=== PATIENT | male | born 1965 | race Caucasian/White ===

== ENCOUNTER 2023-08-07 08:43 | Emergency (ER) | payer BC ==
[2023-08-07] MEDS ORDERED: Ketorolac Tromethamine 30 MG (1 mL) VIAL ONE (10:48)
[2023-08-07 10:55] LABS: #Eosinphils 0.1 thou/uL (0.0-0.7); #Monocytes 0.5 thou/uL (0.11-0.59); #Neutrophils 3.9 thou/uL (1.40-6.50); %Basophils 0.7 % (0.0-1.0); %Eosinophils 2.4 % (0.0-10.0); %Lymphocytes 21.3 % (21.0-51.0); %Monocytes 8.9 % (0.0-10.0); %Neutrophils 66.4 % (42.0-75.0); Hematocrit 45.4 % (42.0-52.0); Hemoglobin 15.6 g/dL (14.0-18.0); Mean Corpuscular HGB CONC 34.4 g/dL (32.0-36.0); Mean Corpuscular Hemoglobin 32.7 pg (27.0-31.0); Mean Corpuscular Volume 95.2 fl (78.0-98.0); Mean Platelet Volume 9.7 fL (7.4-10.4); Platelet Count 184 10x3/uL (130-400); RBC Distribution Width 13.2 % (11.5-14.5); Red Blood Cell (RBC) Count 4.77 mill/uL (4.70-6.10); White Blood Cell (WBC) Count 5.9 10x3/uL (4.8-10.8)
[2023-08-07 11:16] LABS: ALT (SGPT) 28 U/L (8-55); AST (SGOT) 21 U/L (5-34); Albumin 3.9 g/dL (3.5-5.0); Alkaline Phosphatase 65 U/L (40-110); Anion Gap 15 mmol/L (10-20); BUN (Urea Nitrogen) 16 mg/dL (8.4-25.7); Bilirubin, Total 0.6 mg/dL (0.2-1.2); Calc. Creatinine Clearance 0 mL/min (70-130); Carbon Dioxide 22 mmol/L (22-29); Chloride 104 mmol/L (98-107); Estimated GFR 53; Globulin 3.3 g/dL (2.4-3.5); Glucose 74 mg/dL (70-105); Potassium 4.2 mmol/L (3.5-5.1); Protein, Total 7.2 g/dL (6.0-8.3); Sodium 137 mmol/L (136-145)
== END 2023-08-07 12:24 | disposition home or self-care (01) ==
LOC: ERS 08:43
DX: I10 Essential (primary) hypertension (principal); Z55.6 Problems related to health literacy
CPT/HCPCS: 36415; 72193; 80053; 85025; 96374; J1885

== ENCOUNTER 2024-03-15 05:38 | Observation (INO) | payer BC ==
[2024-03-15] MEDS ORDERED: Ondansetron PF 4 MG/2 ML Vial ONE ×2 (06:00→14:07)
[2024-03-15] MEDS ORDERED: Morphine 4 MG/ML VIAL ONE ×3 (06:00→14:07)
[2024-03-15 06:22] LABS: #Basophils 0.03 10x3/uL (0.0-0.2); #Eosinophils Less than 0.03 10x3/uL (0.0-0.7); %Basophils 0.4 % (0.0-1.0); %Eosinophils 0.1 % (0.0-10.0); %Lymphocytes 6.5 % (21.0-51.0); %Monocytes 5.1 % (0.0-10.0); %Neutrophils 87.6 % (42.0-75.0); Mean Corpuscular HGB CONC 33.3 g/dL (32.0-36.0); Mean Corpuscular Hemoglobin 31.9 pg (27.0-31.0); Mean Corpuscular Volume 95.7 fL (78.0-98.0); Mean Platelet Volume 9.7 fL (7.4-10.4); Platelet Count 185 10x3/uL (130-400); RBC Distribution Width 13.5 % (11.5-14.5)
[2024-03-15 06:24] LABS: Bacteria/HPF None Seen HPF (None Seen); Bilirubin Negative (Negative); Blood, Urine Trace (Negative); CAUTI Indications for Culture Pelvic or flank pain; Clarity Clear (Clear); Glucose, Urine (Dipstick) Normal (Negative); Ketone, Urine 20 mg/dL (Negative); Leukocyte Negative Leu/uL (Negative); Nitrite Negative (Negative); Protein, Urine (Dipstick) Negative (Neg-Trace); RBC/HPF 0-3 HPF (0-3); Specific Gravity, Urine 1.016 (1.002-1.036); Squamous Epithelial None Seen HPF (0-3); WBC/HPF 0-3 HPF (0-3)
[2024-03-15 06:28] LABS: Urine Culture Reflex No No
[2024-03-15 06:37] LABS: ALT (SGPT) 150 U/L (8-55); AST (SGOT) 210 U/L (5-34); Albumin 3.8 g/dL (3.5-5.0); Alkaline Phosphatase 130 U/L (40-110); Anion Gap 16 mmol/L (10-20); BUN (Urea Nitrogen) 17 mg/dL (8.4-25.7); Bilirubin, Total 2.3 mg/dL (0.2-1.2); Calc. Creatinine Clearance 0 mL/min (70-130); Calcium 9.3 mg/dL (7.8-10.44); Carbon Dioxide 20 mmol/L (22-29); Chloride 105 mmol/L (98-107); Estimated GFR 73; Globulin 3.4 g/dL (2.4-3.5); Glucose 113 mg/dL (70-105); Lipase 24 U/L (8-78); Protein, Total 7.2 g/dL (6.0-8.3); Sodium 137 mmol/L (136-145)
[2024-03-15 06:42] LABS: Troponin I Less than 0.010 ng/mL (< 0.028)
[2024-03-15] MEDS ORDERED: Iopamidol-370 76% 500 ML MDV (1 ML CHARGE) ONE (08:53)
[2024-03-15] MEDS ORDERED: Piperacillin/Tazobactam 4.5 GM VIAL ONE (10:17)
[2024-03-15] MEDS ORDERED: Sodium Chloride 0.9% 100 ML ONE ×2 (10:17→15:27)
[2024-03-15] MEDS ORDERED: TETANUS, DIPHTHERIA TOX,ADULT (TDVAX) 0.5 ML VIAL IM ONE (11:00)
[2024-03-15] MEDS ORDERED: Dextrose 5% in Water 1,000 ML IV PRN (11:00)
[2024-03-15] MEDS ORDERED: Glucagon 1 MG/ML KIT IM PRN (11:00)
[2024-03-15] MEDS ORDERED: Acetaminophen 325 MG TAB PO PRN (11:00)
[2024-03-15] MEDS ORDERED: Dextrose 50% Abboject 50 ML SYRINGE SLOW IVP PRN (11:00)
[2024-03-15 11:38] VITALS: BMI 37.0
[2024-03-15] MEDS: Sodium Chloride 0.9% 1,000 ML IV SCH (13:16)
[2024-03-15] MEDS: Morphine 4 MG/ML VIAL SLOW IVP PRN (14:31)
[2024-03-15] MEDS: Ondansetron PF 4 MG/2 ML Vial IVP PRN (14:31)
[2024-03-15] MEDS ORDERED: Piperacillin/Tazobactam 3.375 GM VIAL ONE (15:28)
[2024-03-15] MEDS: Piperacillin/Tazobactam 3.375 GM in Sodium Chloride 0.9% 100 ML IVPB SCH (15:46)
[2024-03-15] MEDS ORDERED: hydrALAZINE 20 MG/ML VIAL ONE (16:34)
[2024-03-15] MEDS: hydrALAZINE 20 MG/ML VIAL SLOW IVP PRN (16:41)
[2024-03-15] MEDS: FLU (Fluarix Triv) TS24-25(6MOS UP)/PF 45 MCG/0.5 ML Syringe IM ONE (21:06)
[2024-03-15] MEDS: traMADol HCl 50 MG TAB PO PRN (21:08)
[2024-03-15] MEDS: Famotidine/PF 20 mg/2ml Vial SLOW IVP SCH (21:08)
[2024-03-16] MEDS: Sodium Chloride 0.9% 100 ML ONE (04:16)
[2024-03-16 05:55] LABS: #Basophils 0.06 10x3/uL (0.0-0.2); %Basophils 1.3 % (0.0-1.0); %Eosinophils 2.3 % (0.0-10.0); %Monocytes 9.1 % (0.0-10.0); %Neutrophils 63.1 % (42.0-75.0); Hematocrit 38.9 % (42.0-52.0); Hemoglobin 12.7 g/dL (14.0-18.0); Mean Corpuscular HGB CONC 32.6 g/dL (32.0-36.0); Mean Corpuscular Hemoglobin 31.8 pg (27.0-31.0); Mean Corpuscular Volume 97.3 fL (78.0-98.0); Mean Platelet Volume 9.7 fL (7.4-10.4); Platelet Count 164 10x3/uL (130-400); RBC Distribution Width 13.9 % (11.5-14.5)
[2024-03-16 06:13] LABS: ALT (SGPT) 176 U/L (8-55); AST (SGOT) 124 U/L (5-34); Albumin 3.2 g/dL (3.5-5.0); Alkaline Phosphatase 118 U/L (40-110); Anion Gap 10 mmol/L (10-20); BUN (Urea Nitrogen) 13 mg/dL (8.4-25.7); Bilirubin, Total 1.3 mg/dL (0.2-1.2); Calc. Creatinine Clearance 95 mL/min (70-130); Calcium 8.5 mg/dL (7.8-10.44); Carbon Dioxide 26 mmol/L (22-29); Chloride 106 mmol/L (98-107); Estimated GFR 61; Globulin 2.6 g/dL (2.4-3.5); Glucose 90 mg/dL (70-105); Potassium 4.3 mmol/L (3.5-5.1); Protein, Total 5.8 g/dL (6.0-8.3); Sodium 138 mmol/L (136-145)
[2024-03-16] MEDS ORDERED: Bupivacaine PF 0.5% 30 ML VIAL ONE (06:49)
[2024-03-16] MEDS ORDERED: EPINEPHrine 1 MG/ML VIAL ONE (06:49)
[2024-03-16] MEDS ORDERED: Ondansetron PF 4 MG/2 ML Vial ONE (06:56)
[2024-03-16] MEDS ORDERED: SUGAMMADEX SODIUM 200 MG/2 ML VIAL ONE (06:56)
[2024-03-16] MEDS ORDERED: fentaNYL PF 100 MCG/2 ML SYRINGE ONE (06:56)
[2024-03-16] MEDS ORDERED: Dexamethasone 4 mg/ml Vial ONE (06:56)
[2024-03-16] MEDS ORDERED: Lidocaine 1% PF 5 ML VIAL ONE (06:56)
[2024-03-16] MEDS ORDERED: PROPOFOL 40 ML ONE (06:56)
[2024-03-16] MEDS ORDERED: Rocuronium Bromide 10 MG/ML (10ML VIAL) ONE ×2 (06:56→06:58)
[2024-03-16] MEDS ORDERED: Ketorolac Tromethamine 30 MG (1 mL) VIAL ONE ×2 (07:17→08:27)
[2024-03-16] MEDS ORDERED: Midazolam HCl 2 mg/2 ml Vial ONE (07:36)
[2024-03-16] MEDS ORDERED: Iopamidol 15 ML ONE (07:48)
[2024-03-16] MEDS ORDERED: ePHEDrine Sulfate 50 MG/10 ML VIAL ONE (08:07)
[2024-03-16] MEDS ORDERED: Glucagon 1 MG/ML KIT ONE (08:23)
[2024-03-16] MEDS ORDERED: fentaNYL 50 mcg/mL 1 mL Vial ONE ×2 (08:57→09:33)
[2024-03-16] MEDS ORDERED: traMADol HCl 50 MG TAB PO PRN (09:38)
[2024-03-16] MEDS: Acetaminophen 500 MG TAB PO SCH (10:50)
[2024-03-16] MEDS ORDERED: Acetaminophen 500 MG TAB PO SCH (13:00)
[2024-03-16 13:09] VITALS: BP 130/81; TEMP 97.8
[2024-03-16] MEDS ORDERED: Atorvastatin Calcium 10 MG TAB PO SCH (21:00)
[2024-03-17] MEDS ORDERED: [UNRECOGNIZED DRUG - OTHER] PO SCH (09:00)
[2024-03-17] MEDS ORDERED: BENAZEPRIL PO SCH ×2 (09:00)
[2024-03-17] MEDS ORDERED: AMLODIPINE BESYLATE PO SCH ×2 (09:00)
== END 2024-03-16 13:17 | disposition home or self-care (01) ==
LOC: ERS 05:38 → INTOOBSV 11:02 → ERHOLD 11:02 → SURG A 17:27
PROVIDERS: ADMIT Surgery; ATTEND Surgery
PROC: 0FT44ZZ Resection of Gallbladder, Percutaneous Endoscopic Approach (ICD-10-PCS; principal; 2024-03-16)
DX: K80.12 Calculus of gallbladder with acute and chronic cholecystitis without obstruction (principal); E80.7 Disorder of bilirubin metabolism, unspecified; I10 Essential (primary) hypertension; E66.9 Obesity, unspecified; I71.40 Abdominal aortic aneurysm, without rupture, unspecified; R74.01 Elevation of levels of liver transaminase levels; I38 Endocarditis, valve unspecified; Z98.890 Other specified postprocedural states; Z98.84 Bariatric surgery status; Z96.653 Presence of artificial knee joint, bilateral; Z68.37 Body mass index [BMI] 37.0-37.9, adult
CPT/HCPCS: 36415; 71045; 74177; 76705; 80053; 81001; 83605; 83690; 84484; 85025; 88304; 93005; 96365; 96375; 96376; C1889; J0171; J0360; J0665; J1100; J1611; J1885; J2250; J2272; J2405; J2543; J2704; J3010; J3490; J7030; Q9967

== ENCOUNTER 2024-12-03 22:13 | Emergency (ER) | payer BC ==
[2024-12-03 22:44] LABS: #Basophils 0.04 10x3/uL (0.0-0.2); #Eosinophils 0.07 10x3/uL (0.0-0.7); #Monocytes 0.45 10x3/uL (0.11-0.59); #Neutrophils 3.39 10x3/uL (1.40-6.50); %Basophils 0.7 % (0.0-1.0); %Eosinophils 1.2 % (0.0-10.0); %Lymphocytes 34.4 % (21.0-51.0); %Monocytes 7.4 % (0.0-10.0); %Neutrophils 56.0 % (42.0-75.0); Hematocrit 42.2 % (42.0-52.0); Hemoglobin 14.3 g/dL (14.0-18.0); Mean Corpuscular Hemoglobin 32.4 pg (27.0-31.0); Mean Corpuscular Volume 95.7 fL (78.0-98.0); Platelet Count 158 10x3/uL (130-400); Red Blood Cell (RBC) Count 4.41 mill/uL (4.70-6.10); White Blood Cell (WBC) Count 6.05 10x3/uL (4.8-10.8)
[2024-12-03 23:09] LABS: ALT (SGPT) 22 U/L (Less than 45); AST (SGOT) 19 U/L (11-34); Albumin 3.8 g/dL (3.1-4.5); Alkaline Phosphatase 73 U/L (40-110); Anion Gap 13 mmol/L (10-20); BUN (Urea Nitrogen) 30 mg/dL (8.4-25.7); Bilirubin, Total 0.3 mg/dL (0.3-1.2); Calc. Creatinine Clearance 0 mL/min (70-130); Calcium 8.8 mg/dL (7.8-10.44); Carbon Dioxide 25 mmol/L (22-29); Chloride 104 mmol/L (98-107); Globulin 2.7 g/dL (2.4-3.5); Glucose 99 mg/dL (70-105); Lipase 51 U/L (8-78); Magnesium 1.9 mg/dL (1.6-2.6); Potassium 3.9 mmol/L (3.5-5.1); Sodium 138 mmol/L (136-145)
[2024-12-03 23:15] LABS: Troponin I Less than 0.010 ng/mL (< 0.028)
== END 2024-12-04 01:08 | disposition short-term general hospital (02) ==
LOC: ERS 22:13
DX: R00.2 Palpitations (principal); I10 Essential (primary) hypertension; E78.00 Pure hypercholesterolemia, unspecified; Z79.899 Other long term (current) drug therapy
CPT/HCPCS: 71045; 80053; 83690; 83735; 84484; 85025; 93005; 94760